=== PATIENT | male | born 1995 | race African-American/Black ===

== ENCOUNTER 2020-11-18 10:54 | Emergency (ER) | payer SELFPAY ==
--- NOTE | ~2020-11-18 | XR_ITS ---
EXAMINATION: XR chest 1V portable EXAM DATE: 11/18/2020 11:40 INDICATION: Chest tightness. TECHNIQUE: Portable AP frontal chest x-ray was obtained. There is no prior study for comparison. FINDINGS: The lungs are clear. There are no pleural effusions. The cardiomediastinal silhouette is within normal limits. There is no pneumothorax suspected. The bones and soft tissues are unremarkab le. IMPRESSION: No acute cardiopulmonary findings. Reviewed, dictated and finalized at location A.
[2020-11-18 10:57] VITALS: BP 189/115; PULSE 75; RESP 24; TEMP 36.1; O2SAT 100
--- NOTE | 2020-11-18 11:07 | ED.GENADULT ---
HPI - General Adult General Chief complaint: Nausea/Vomiting/Diarrhea Stated complaint: chest pain/sob Source: patient Mode of arrival: EMS Limitations: no limitations History of Present Illness HPI narrative: Patient presents for evaluation of nausea, vomiting and chest tightness which started this morning. He indicates he believes his symptoms were related to alcohol intake last evening. States he consumed 3 shots and 3 mixed drinks. He had not eaten prior to intake of alcohol. This morning he woke from sleep around 0700 and felt well at that time. He began scrolling through his phone. At that time he experienced in the suprapubic region experienced vomiting. Reports approximately 10 episodes of vomiting since the time of symptom onset. During one of the episodes he felt short of breath and experience some chest tightness. She went to [facility] and they transferred him here by EMS. At the present time, he states he feels fairly well. His nausea has subsided since receiving zofran en route. He denies any fever, chills, and any current abdominal pain, vomiting. Last bowel movement was this morning, solid in consistency, without the presence of blood or mucous in his stool. He does smoke marijuana daily but denies smoking cigarettes. He uses ecstasy from time to time with last reported use approximately 1 week ago. Related Data Home Medications Medication Instructions Recorded Confirmed No Home Medications 11/18/20 11/18/20 Allergies Allergy/AdvReac Type Severity Reaction Status Date / Time No Known Allergies Allergy Verified 11/18/20 11:03 Review of Systems Review of Systems: Narrative: CONSTITUTIONAL: Denies fever, chills, or sweats. EYES: Denies visual changes, redness, or discharge. ENT: Denies rhinorrhea, congestion, sore throat, or otalgia. CARDIOVASCULAR: Reports chest tightness earlier, now resolved. Denies palpitations and edema RESPIRATORY: Shortness of breath earlier, now resolved. Denies cough.. GASTROINTESTINAL: Reports nausea, vomiting and abdominal pain earlier, now resolved GENITOURINARY: Denies dysuria or hematuria. SKIN: Denies rash or itching. MUSCULOSKELETAL: Denies back pain, joint pain, or myalgia. NEUROLOGIC: Denies headache, numbness, dizziness, or weakness. PSYCHIATRIC: Denies anxiety or depression. [facility] Past Medical History Medical History (Updated 11/18/20 @ 14:58 by Terrance Robles, [facility], ) Hypertension Surgical History Surgical History No pertinent past surgical history Family History Family History Mother No pertinent family history Social History Social History (Updated 11/18/20 @ 11:19 by Terrance Robles [facility], ) Alcohol intake: current Alcohol use details: Few alcohol beverages weekly Substance use: current Substance use type: marijuana and other Other substance usage details: ecstacy Living arrangements: alone Gender identity (if verbalized by the patient): Male Sexual Orientation (if Verbalized by the Patient): Straight or Heterosexual Spiritual care concerns: No Exam Narrative: Exam Narrative: GENERAL: Well-appearing, well-nourished, and in no acute distress. HEAD: Normocephalic, atraumatic. EYES: PERRLA and EOMI. ENT: Nares clear, no rhinorrhea or epistaxis. Mucous membranes moist. Oropharynx without tonsillar hypertrophy exudate or other lesions. Bilateral TMs pearly le nonbulging NECK: Supple. No adenopathy or masses. No carotid bruits or JVD CHEST: Clear to auscultation. No respiratory distress. No wheezes rales or rhonchi HEART: Regular rate and rhythm. No murmur heard. Normal peripheral pulses. ABDOMEN: Soft, nontender, nondistended, normal active bowel sounds. EXTREMITIES: Normal range of motion. No edema. SKIN: Warm, dry, no rash. NEURO: No focal deficits. Alert and oriented x3. PSYCH:
[2020-11-18] MEDS: FAMOTIDINE 20 MG/2 ML VIAL IV PUSH (11:21)
[2020-11-18] MEDS: SODIUM CHLORIDE 0.9% IV 1,000 ML 999 ML IV CONT ×2 (11:21→12:44)
--- NOTE | 2020-11-18 11:28 | ECG_ITS ---
Measurements Intervals [place] Rate: 73 P: 77 VA: 148 QRS: 79 QRSD: 101 T: 49 QT: 397 QTc: 440 Interpretive Statements SINUS RHYTHM WITH SINUS ARRHYTHMIA BORDERLINE T WAVE ABNORMALITY- ANTERIOR LEADS BASELINE ARTIFACT- II, III, AVF BORDERLINE ECG Electronically Signed On 11-18-2020 17:46:24 CDT by Antonio Hollis D.O.
[2020-11-18 11:48] LABS: Basophils Percent Auto 0.4 % (0.2-1.2); Eosinophils Percent Auto 0.3 % (0-4.4); Hematocrit 43.8 % (42.0-52.0); Hemoglobin 14.7 g/dL (14.0-18.0); Immature Granulocyte Absolute 0.04 K/mm3 (0.00-0.031); Immature Granulocyte Percent A 0.5 % (0-0.5); Lymphocytes Absolute Auto 1.32 K/mm3 (0.9-3.2); Lymphocytes Percent Auto 17.7 % (18.3-44.2); Mean Corpuscular HGB Conc 33.6 g/dl (32-36); Mean Corpuscular Hemoglobin 30.1 pg (26-34); Mean Corpuscular Volume 89.8 fl (80-100); Monocytes Absolute Auto 0.5 K/mm3 (0.1-0.6); Monocytes Percent Auto 7.3 % (2.6-8.5); Neutrophils Absolute Auto 5.5 K/mm3 (1.3-6.7); Neutrophils Percent Auto 73.8 % (45.5-73.1); Platelet Count Result 321 k/mm3 (150-375); Red Blood Count 4.88 M/mm3 (4.6-6.20); Red Cell Distribution Width 12.2 % (11.5-14.5); White Blood Count 7.4 K/mm3 (4.5-10.0)
[2020-11-18 11:57] LABS: Alanine Aminotransferase 27 U/L (4-50); Alkaline Phosphatase 68 U/L (38-126); Anion Gap 15 mmol/L (8-16); Aspartate Amino Transferase 51 U/L (17-59); Bilirubin,Total 1.4 mg/dL (0.2-1.3); Blood Urea Nitrogen 14 mg/dL (9-20); Calcium 9.9 mg/dL (8.4-10.2); Carbon Dioxide 24 mmol/L (22-30); Chloride 104 mmol/L (98-107); Estimated CRCL calculation 117 ml/min; Estimated Glomerular Filt Rate > 60; Glucose 90 mg/dL (75-110); Lipase 38 U/L (23-300); Potassium 3.7 mmol/L (3.4-5.0); Sodium 143 mmol/L (137-145)
[2020-11-18 12:01] LABS: Add Urine Microscopic? YES; Appearance Urine Cloudy (Clear); Bilirubin Urine Negative (Negative); Blood Urine Negative (Negative); Color Urine Amber (Yellow); Glucose Urine UA Negative (Negative); Ketones Urine 2+ mg/dL (Negative); Leukocyte Esterase Ur Negative LEU/UL (Negative); Mucus Urine Heavy /lpf; Nitrate Urine Negative (Negative); Protein Urine 2+ mg/dL (Negative); RBC Urine 0-2 /hpf (0-2); Squamous Epithelial Cell Urine Rare /hpf (Few); WBC Urine 0-3 /hpf
[2020-11-18 12:07] LABS: Specific Grav Ur 1.031 (1.001-1.035)
[2020-11-18 12:09] LABS: Troponin I < 0.012 ng/mL (0.000-0.034)
[2020-11-18 12:44] VITALS: BP 151/66; PULSE 70; RESP 14; O2SAT 100
[2020-11-18 14:52] LABS: Troponin I < 0.012 ng/mL (0.000-0.034)
[2020-11-18 15:10] VITALS: BP 157/69; PULSE 74; RESP 16; O2SAT 98
== END 2020-11-18 15:20 | disposition home or self-care (01) ==
PROVIDERS: Emergency Provider Nurse Practitioner
DX: E86.0 Dehydration (principal); R11.2 Nausea with vomiting, unspecified; I10 Essential (primary) hypertension; R94.31 Abnormal electrocardiogram [ECG] [EKG]
CPT/HCPCS: 36415; 71045; 80053; 81001; 83690; 84484; 85025; 93005; 96374; 96375; 99284; J7030